=== PATIENT | male | born 1950 | race Caucasian/White ===

== ENCOUNTER 2016-12-17 08:23 | Day surgery (SDC) | payer MEDICARE, OTHER ==
[~2016-12-17] VITALS: Ht 170.2 cm; Wt 67.6 kg
--- NOTE | ~2016-12-17 | OR ---
PATIENT'S NAME: MAGDA COLLINS [facility] AGE: 66 Y [address] ROOM: [address] [address] LOCATION: [facility] ADMIT DATE: 12/17/2016 OR/Procedure Report DISCHARGE DATE: FAMILY PHYSICIAN: Jeff Sullivan MD ATTENDING PHYSICIAN: Destiny Kahn SURGEON: Destiny Kahn MD PUBLICITY CONSULTANT: Joceline Fournier CST. DATE OF PROCEDURE: 12/17/2016 PREOPERATIVE DIAGNOSIS: Lumbar disk herniation. POSTOPERATIVE DIAGNOSIS: Lumbar disk herniation. PROCEDURE PERFORMED: Left hemilaminotomy L3-L4 with foraminotomy and discectomy. ANESTHESIA: General. ANESTHESIA PROVIDER: William Dunlap MD. HISTORY: The patient is a 66-year-old male who had onset of leg pain going from the left thigh down to the foot. He also had a foot drop on his left foot, would tend to turn outwards when he was walking, and he could not maintain a normal stride. The patient had a lumbar MRI scan and it showed a piece of sequestered disk on the left side at L3-4. With the presence of footdrop and a piece of sequestrated disk, I felt that conservative treatment would not be appropriate for this individual, I therefore, recommended surgery. I went over the recommended procedure of left lumbar diskectomy L3-4 with the patient and his . I reviewed the benefits, risks, and alternatives of the procedure with him and with his consent, he was brought to the operating room for surgery today. PROCEDURE IN DETAIL: In the operating room, the patient was placed in a supine position. Anesthesia was induced. He was intubated and rolled to a prone position on a Sukhjinder table. The incision was marked out in his lower back area and the whole area was prepped and draped in a sterile fashion. Local anesthesia was infiltrated. A #10 blade was used to open the skin and deepen the incision to the fascia. The fascia was opened on the left side of his spinous processes, and the paraspinous muscles were dissected off the spinous processes and laminae of L4 and L3. The Cho retractor was inserted. The interlaminar space on the left side at L3-4 was identified. Intraoperative x-ray was obtained to verify that we were at the desired level. Microscope was brought in at this point, and the rest of the procedure was carried out under microscopic vision. The adjacent edges of the L3 and L4 PATIENT'S NAME: MAGDA COLLINS [facility] AGE: 66 Y [address] ROOM: [id number] [place], [place] [id number] LOCATION: [facility] ADMIT DATE: 12/17/2016 OR/Procedure Report DISCHARGE DATE: FAMILY PHYSICIAN: Jeff Sullivan MD ATTENDING PHYSICIAN: Destiny Kahn laminae on the left side were drilled down and the adjoining medial facet was also drilled down. The ligamentum flavum was removed to expose the dura. Some further removal of the medial facet exposed the nerve root as well. The nerve root and dura were then mobilized toward the midline and the disk became visible. The disk was bulging slightly, but definitely not the cause of the patient's symptoms. I knew there was sequestrated piece of disk just caudal to the disk space itself and lodged on the medial side of the left L4 pedicle. I felt that these pieces needed to be identified and removed to ensure that the procedure was successful. The pieces were initially elusive and it took a fair bit of searching to finally identify them almost on the ventral surface of the dura. Once these pieces of disk were seen, a small nerve hook was used to tease them out and a small pituitary rongeur was then used to pull them out. This was a very gratifying finding. A diligent search was made for any residual pieces of disk, but none was seen. A microdiskectomy was then carried out. I was able to identify the rent on the annulus where the sequestrated disks had likely escaped from. Using this rent as the starting point, the hole was enlarged and some more pieces of disk were removed from the disk space itself. This continued until I felt that satisfactory decompression had been achieved. Bone wax was then used to wax the edges of the hemilaminotomy. The epidural veins were coagulated. The incision was thoroughly irrigated. Some ropivacaine was placed in the epidural space to help with postoperative pain control. The instruments were then removed, and the incision was closed using appropriate suture materials. A sterile dressing was applied. The patient was rolled back to a supine position, his anesthesia was reversed, he was extubated, and taken to the recovery room to complete his recovery. I was present at and performed every aspect of this procedure, assisted at some stages by the operating room nurses. There were no apparent intraoperative complications. Swabs, needles, and instruments were all accounted for at the end of the case. Estimated blood loss was less than 100 mL. There was no reason for a blood transfusion. I expect the patient to benefit from this procedure. DESTINY KAHN MD CNO/modl PATIENT'S NAME: MAGDA COLLINS [facility] AGE: 66 Y [address] ROOM: [address] [address] LOCATION: [facility] ADMIT DATE: 12/17/2016 OR/Procedure Report DISCHARGE DATE: FAMILY PHYSICIAN: Jeff Sullivan MD ATTENDING PHYSICIAN: Destiny Kahn /[id number] CC: Jeff Sullivan MD d: 12/17/16 2355 t: 12/20/16 1714, OPERATIVE SUMMARY
[~2016-12-17 08:23] MED LIST: CLARITIN10 MG PO; MULTI VITAMIN1 EACH PO; SINEMET CR 50-1 EACH PO; TOPROL XL25 MG PO
[2016-12-17 09:53] LABS: INR - (THERAPEUTIC) 1.05 (0.92-1.07)
--- NOTE | 2016-12-18 07:25 | NUR ---
Significant Event: Arrived to floor from surgery at approximately 1900. Surgery to L3-L4 microdiscectomy. Primapore dressing to back moderate bloody shadow drainage. Takes Rover for pain x2. Ambulates SBA. Continuous IV fluids through left posterior forearm. Denies numbness/tingling. Follow up:
[2016-12-18] MEDS ORDERED: NORCO 5-325 TA1 EACH PO (13:13)
== END 2016-12-18 13:40 | disposition disaster alternative care site (69) ==
LOC: GSDC 08:23 → G3N 08:23 → GSDC 14:00 → GNTU 15:30 → GSDC 12-18 13:40
PROVIDERS: Neurological Surgery
PROC: 0SB20ZZ Excision of Lumbar Vertebral Disc, Open Approach (ICD-10-PCS; principal; 2016-12-17)
PROC: 01NB0ZZ Release Lumbar Nerve, Open Approach (ICD-10-PCS; 2016-12-17)
DX: M51.16 Intervertebral disc disorders with radiculopathy, lumbar region (principal); M21.372 Foot drop, left foot; E78.5 Hyperlipidemia, unspecified; G20 Parkinson's disease; Z86.010 Personal history of colon polyps; Z88.8 Allergy status to other drugs, medicaments and biological substances; Z87.891 Personal history of nicotine dependence; Z98.890 Other specified postprocedural states
CPT/HCPCS: G8978; G8979; G8980; G8987; G8988; G8989; J0690; J2001; J2795; J7030; J7120